=== PATIENT | female | born 1995 | race Caucasian/White ===

== ENCOUNTER 2018-10-03 15:39 | Outpatient (CLI) | payer OTHER ==
[2018-10-03 19:24] VITALS: BP 91/58
--- NOTE | 2018-10-03 20:06 | Ultrasound Report ---
PROCEDURE: US OB LIMITED TECHNIQUE: Ultrasound obstetrical transabdominal limited HISTORY: LISSETT COMPARISONS: FINDINGS: Single live intrauterine gestation present in cephalic position. cardiac activity present with heart rate 130 bpm Amniotic fluid index is 11.2 cm IMPRESSION: Normal amniotic fluid index 11.2 cm. This document is electronically signed by Dejan Hunter MD., October 03 2018 08:04:16 PM ET
--- NOTE | 2018-10-03 20:32 | Ultrasound Report ---
PROCEDURE: US OB BPP WO NON-STRESS TECHNIQUE: Real-time limited sonographic examination was performed for evaluation of for each fetus with image documentation (1 or more fetuses). HISTORY: decreased movement COMPARISONS: None . FINDINGS: biophysical profile: breathing movements: 2. movements: 2. posture and tone: 2. Qualitative amniotic fluid volume: 2. Total score: 8/8. Heart rate: 130 bpm. Amniotic fluid index: 11.2 cm. Largest pocket: 4.74 cm. IMPRESSION: Normal biophysical profile. This document is electronically signed by Aman Jackson MD., October 03 2018 08:30:52 PM ET
== END 2018-10-03 20:12 | disposition home or self-care (01) ==
LOC: TRG 15:39
PROVIDERS: ATTEND Obstetrics & Gynecology
DX: O47.1 False labor at or after 37 completed weeks of gestation (principal); Z3A.40 40 weeks gestation of pregnancy
CPT/HCPCS: 76815; 76819

== ENCOUNTER 2018-10-13 06:57 | Inpatient (IN) | payer MEDICAID, OTHER ==
[2018-10-13] MEDS ORDERED: PITOCin/NS 20 UNIT/1000ML DRIP 20,000 MILLIUNITS/1,000 ML BAG IV ONE (07:18)
--- NOTE | 2018-10-13 07:39 | Procedure Note ---
OB Delivery Note - Delivery Date of Delivery: 10/13/18 (07:15) Surgeon: BROOKE WALLS ([email or web address]) Estimated blood loss: <100cc - Vaginal Delivery presentation: vertex Delivery position: OA Intrapartum events: precipitous labor- <3hr Delivery induction: none Delivery augmentation: rupture of membranes Route of delivery: (07:15) Delivery placenta: spontaneous (07:23) Delivery cord: 3 umbilical vessels Episiotomy: none Delivery laceration: none Anesthesia: none Delivery comments: viable female infant MARCELA position over intact perineum at 07:15. vigorous to mothers abdomen, [id number]. Delayed cord clamping; then cut by female friend in room with my guidance. Cord blood collected per protocol. Spontaneous schutlz delivery of intact placenta. 3VC at 07:23. FF@U-2. No tears or lacerations. and mother left in stable condition in L&D. - Infant A at 1 minute: 9 at 5 minutes: 9 Gender: Female (6lbs 1oz, 2750 grams, 18")
[2018-10-13] MEDS ORDERED: LANSINOH TP PRN (08:00)
[2018-10-13] MEDS ORDERED: TUCKS PAD TP PRN (08:00)
[2018-10-13] MEDS ORDERED: LACTATED RINGERS 1,000 ML IV SCH (08:00)
[2018-10-13] MEDS ORDERED: PITOCin/NS 20 UNIT/1000ML DRIP 20 UNITS/1,000 ML BAG IV SCH (08:00)
[2018-10-13] MEDS ORDERED: TYLENOL PO PRN (08:00)
[2018-10-13] MEDS ORDERED: SODIUM CHLORIDE FLUSH SYRINGE 10 ML IV PRN (08:00)
--- NOTE | 2018-10-13 08:03 | History and Physical Report ---
History of Present Illness Date of examination: 10/13/18 Date of admission: 10/13/18 06:57 Chief complaint: Intense labor pains History of present illness: 17 yo Fe , FADY 10/25/2018 (per pt) presents in active labor. 9cm with urge to push. Pt reports care from [facility]. records not available. Requested. 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 Pt denies) Family/Genetic History: none Social history: no significant social history, single, lives with family, full code. denies: smoking, alcohol abuse, prescription drug abuse, IV drug use - Obstetrical History Expected Date of Delivery: 10/25/18 Actual Gestation: 38 Week(s) 2 Day(s) : 3 Para: 2 Hx # Term Pregnancies: 2 Number of Pregnancies: 0 Spontaneous Abortions: 0 Induced : 0 Number of Living Children: 2 Medications and Allergies Allergies Allergy/AdvReac Type Severity Reaction Status Date / Time No Known Allergies Allergy Verified 10/13/18 07:23 Active Meds: Active Medications Acetaminophen (Tylenol) 650 mg PO Q4H PRN PRN Reason: Pain MILD(1-3)/Fever >100.5/ROBERT Acetaminophen/Hydrocodone Bitart (Bovina 5/325) 2 each PO Q6H PRN PRN Reason: Pain, Moderate (4-6) Lactated Ringer's (Lactated Ringers) 1,000 mls @ 125 mls/hr IV DIRECT HEATHER Oxytocin/Sodium Chloride (Pitocin/Ns 20 Unit/1000ml Drip) 20 units in 1,000 mls @ 125 mls/hr IV DIRECT HEATHER Ibuprofen (Motrin) 600 mg PO Q6H HEATHER Multi-Ingredient Ointment (Lansinoh) 1 applic TP PRN PRN PRN Reason: Sore Nipples Sodium Chloride (Sodium Chloride Flush Syringe 10 Ml) 10 ml IV PRN NR Witch Loli/Glycerin (Tucks Pad) 1 each TP PRN PRN PRN Reason: Hemorrhoid/cleansing/soothing Review of Systems Eyes: normal appearance Cardiovascular: no chest pain, no shortness of breath Respiratory: no shortness of breath Breasts: normal Gastrointestinal: abdominal pain (contractions), no nausea, no vomiting, no diarrhea, no constipation Genitourinary: normal appearance, contractions, no vaginal discharge, no leakage of fluid, no dysuria, no genital sores Integumentary: no rash, no sores, no lesions Endocrine: other (Denies) - Vital Signs Vital signs: Vital Signs Pulse BP 83 125/59 10/13/18 07:38 10/13/18 07:38 Temp Pulse Resp BP Pulse Ox 92 H 110/59 10/13/18 07:39 10/13/18 07:39 - Physical Exam Cardiovascular: Regular rate, Normal S1, Normal S2, No murmurs Lungs: Positive: Clear to auscultation, Normal air movement Abdomen: Positive: normal appearance, soft, normal bowel sounds Genitourinary (Female): Positive: normal external genitalia, normal perenium Vulva: both: normal Vagina: Positive: normal moisture Uterus: Positive: enlarged (gravid) Anus/Rectum: Positive: normal perianal skin Extremities: Positive: normal Deep Tendon Reflex Grade: Normal +2 - Obstetrical FHR: auscultation normal, category 1 Uterine Contraction Monitor Mode: External Cervical Dilatation: 10 Cervical Effacement Percentage: 10 station: +1 Uterine Contraction Pattern: Regular Uterine Tone Measurement Phase: Resting Uterine Contraction Intensity: Strong/Firm Results All other labs normal. Assessment and Plan A: Term IUP 38w2d Active labor GBS unknown category 2 tracing P: Admit to L&D Request records Anticipate
[2018-10-13 08:07] LABS: Hematocrit 38.1 % (30.3-42.9); Hemoglobin 13.2 gm/dl (10.1-14.3); Mean Corpuscular HGB Conc 35 % (30-34); Mean Corpuscular Volume 94 fl (79-97); Platelet Count 227 K/mm3 (140-440); Red Blood Count 4.06 M/mm3 (3.65-5.03); Red Cell Distribution Width 14.4 % (13.2-15.2)
[2018-10-13] MEDS: NORCO 5/325 PO PRN ×2 (08:22→22:17)
[2018-10-13] MEDS: IBUPROFEN PO SCH ×2 (14:30→22:17)
[2018-10-13 19:42] LABS: Hematocrit 33.4 % (30.3-42.9); Hemoglobin 11.7 gm/dl (10.1-14.3)
[2018-10-14] MEDS: IBUPROFEN PO SCH ×2 (03:00→10:46)
--- NOTE | 2018-10-14 11:39 | Progress Note ---
Assessment and Plan A: day 1 S/P spontaneous vaginal delivery. P: Discharge patient home today. discharge instructions and warning signs discussed with patient. Advised patient to avoid intercourse, lifting and heavy housework, driving. Advised patient to continue taking her vitamins and iron at home. Advised patient to follow up at OB clinic in 6 weeks for exam. Patient voiced understanding of all instructions. Subjective - Subjective Date of service: 10/14/18 Principal diagnosis: day 1 S/P spontaneous vaginal delivery Interval history: day 1 S/P spontaneous vaginal delivery. Doing well. Desires discharge today. Patient is voiding without difficulty, ambulating well, tolerating a regular diet without nausea or vomiting. Patient denies headache, chest pain, cough, dizziness, shortness of breath, leg pain, abdominal pain, heavy vaginal bleeding, or any other problems. Patient reports: appetite normal, voiding normally, pain well controlled, flatus, ambulating normally, no dizzy ambulation, no nauseated : doing well Objective - Vital Signs Latest vital signs: Vital Signs Temp Pulse Resp BP BP Pulse Ox 10/14/18 10:46 18 10/14/18 07:33 98.1 F 57 L 18 103/73 10/13/18 23:55 98.7 F 63 18 96/52 97 10/13/18 16:36 98.8 F 53 L 18 95/57 10/13/18 14:30 18 10/13/18 13:16 98.2 F 58 L 18 102/59 Intake and Output 10/13/18 10/14/18 10/14/18 23:59 07:59 15:59 Intake Total 840 480 Output Total 300 Balance 540 480 Intake: Oral 480 480 Intake, Free Water 360 Output: Urine 300 Void 300 Other: Total, Intake Amount 480 360 Total, Output Amount 300 # Voids Void 1 1 - Exam Cardiovascular: Present: Regular rate, Normal S1, Normal S2 Lungs: Present: Clear to auscultation Abdomen: Present: normal appearance, soft. Absent: distention, tenderness, guarding, rigidity Uterus: Present: normal, firm, fundal height below umbilicus. Absent: bogginess, tenderness Extremities: Present: normal. Absent: tenderness, edema
--- NOTE | 2018-10-14 11:44 | Discharge Summary ---
<LUIZ DEAL - Last Filed: 10/14/18 11:42> Providers - Providers Date of Admission: 10/13/18 06:57 Date of discharge: 10/14/18 Attending physician: FAUSTINO DEWEY MD None Primary care physician: FAUSTINO DEWEY MD Hospitalization Reason for admission: active labor Delivery: Episiotomy: none Laceration: none Other procedures: none complications: none Discharge diagnosis: IUP at term delivered [place] baby: female Pertinent studies: Labs Hospital course: Normal hospital course. Condition at discharge: Good Disposition: DC-01 TO HOME OR SELFCARE - Discharge Diagnoses (1) Term delivered Status: Acute Plan - Provider Discharge Summary Activity: routine, no sex for 6 weeks, no heavy lifting 4 weeks, no strenuous exercise Diet: routine Instructions: routine Additional instructions: Continue taking your vitamins at home. Call your doctor immediately for: * Fever > 100.5 * Heavy vaginal bleeding ( >1 pad per hour) * Severe persistent headache * Shortness of breath * Reddened, hot, painful area to leg or breast - Follow up plan Follow up: FAUSTINO DEWEY MD [Primary Care Provider] - 6 Weeks Forms: [facility] Discharge Summary, Discharge Signature Page <RAVEN DOOLEY - Last Filed: 10/15/18 13:10> Providers - Providers Date of Admission: 10/13/18 06:57 Attending physician: FAUSTINO DEWEY MD Primary care physician: FAUSTINO DEWEY MD Hospitalization Hospital course: Laboratory Tests 10/13/18 10/13/18 10/13/18 07:00 07:00 07:00 WBC 11.7 H RBC 4.06 Hgb 13.2 Hct 38.1 MCV 94 MCH 33 H MCHC 35 H RDW 14.4 Plt Count 227 RPR Nonreactive Blood Type O POSITIVE Antibody Screen Negative 10/13/18 19:23 WBC RBC Hgb 11.7 Hct 33.4 MCV MCH MCHC RDW Plt Count RPR Blood Type Antibody Screen Plan - Provider Discharge Summary Additional instructions: [] Smoking cessation referral if applicable(refer to patient education folder for contact #) [] Refer to [facility] Booklet Call your doctor immediately for: * Fever > 100.5 * Heavy vaginal bleeding ( >1 pad per hour) * Severe persistent headache * Shortness of breath * Reddened, hot, painful area to leg or breast * Drainage or odor from incision. * Keep incision clean and dry at all times and follow doctor's instructions regarding bathing/showering
[2018-10-14 12:42] VITALS: BP 93/51
== END 2018-10-14 14:00 | disposition home or self-care (01) | DRG 807 ==
LOC: LD 06:57 → OB 09:47
PROVIDERS: ADMIT Obstetrics & Gynecology; ATTEND Obstetrics & Gynecology
PROC: 10E0XZZ Delivery of Products of Conception, External Approach (ICD-10-PCS; principal; 2018-10-13)
DX: O62.3 Precipitate labor (principal); Z37.0 Single live birth; Z3A.38 38 weeks gestation of pregnancy
CPT/HCPCS: 36415; 85014; 85018; 85027; 86592; 86850; 86900; 86901; G0378; J2590

== ENCOUNTER 2020-06-25 15:50 | Inpatient (IN) | payer OTHER ==
[2020-06-25] MEDS ORDERED: LACTATED RINGERS 1,000 ML ONE (18:34)
[2020-06-25] MEDS ORDERED: LIDOCAINE (2%) 20 MG/1 ML VIAL 20 ML MDV INFILTRATI ONE ×2 (18:36→19:47)
[2020-06-25 18:42] LABS: Hematocrit 37.6 % (30.3-42.9); Hemoglobin 12.7 gm/dl (10.1-14.3); Mean Corpuscular HGB Conc 34 % (30-34); Mean Corpuscular Volume 91 fl (79-97); Platelet Count 272 K/mm3 (140-440); Red Blood Count 4.13 M/mm3 (3.65-5.03); Red Cell Distribution Width 14.3 % (13.2-15.2)
[2020-06-25] MEDS ORDERED: OXYTOCIN DRIP 30,000 MILLIUNITS/500 ML BAG IV ONE (18:46)
[2020-06-25] MEDS ORDERED: LOPERAMIDE 2 MG CAP PO PRN (18:47)
[2020-06-25] MEDS ORDERED: ePHEDrine SULFATE 50 MG/1 ML INJ IV PRN (18:47)
[2020-06-25] MEDS ORDERED: TERBUTALINE 1 MG/1 ML INJ SUB-Q PRN (18:47)
[2020-06-25] MEDS ORDERED: fentaNYL 100 MCG/2 ML INJ IV PRN (18:47)
[2020-06-25] MEDS ORDERED: ACETAMINOPHEN 325 MG TAB PO PRN ×2 (18:47→19:38)
[2020-06-25] MEDS ORDERED: NALOXONE 0.4 MG/1 ML INJ IV PRN (18:47)
[2020-06-25] MEDS ORDERED: PROMETHAZINE 25 MG TAB PO PRN ×2 (18:47→19:38)
[2020-06-25] MEDS ORDERED: OXYTOCIN 10 UNIT/1 ML INJ IM PRN (18:47)
[2020-06-25] MEDS ORDERED: METHYLERGONOVINE MALEATE 0.2 MG/ML VIAL IM PRN (18:47)
[2020-06-25] MEDS ORDERED: miSOPROStol 200 MCG TAB PR PRN ×2 (18:47→19:38)
[2020-06-25] MEDS ORDERED: CARBOPROST TROMETHAMINE 250 MCG/1 ML INJ IM PRN (18:47)
[2020-06-25] MEDS ORDERED: MINERAL OIL 30 ML ORAL LIQD PO PRN (18:47)
--- NOTE | 2020-06-25 18:47 | History and Physical Report ---
History of Present Illness Date of examination: 06/25/20 (Ctxs) Date of admission: 06/25/2020 Chief complaint: Contractions History of present illness: Pt is a 25 y.o. English speaking who presented to triage with c/o ctxs that are 10 minutes apart. Received care at [facility] , Dr. Guero Burkett. She presented with her records, which were reviewed. X3. 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 labs WNL. GBS negative. No medical or surgical history. Denies drug and alcohol use. 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 ) Social history: no significant social history - Obstetrical History Expected Date of Delivery: 06/27/20 Actual Gestation: 39 Week(s) 5 Day(s) : 4 Para: 3 Hx # Term Pregnancies: 3 Number of Pregnancies: 0 Spontaneous Abortions: 0 Induced : 0 Number of Living Children: 3 Medications and Allergies Allergies Allergy/AdvReac Type Severity Reaction Status Date / Time No Known Allergies Allergy Verified 10/13/18 07:23 Home Medications Medication Instructions Recorded Confirmed Last Taken Type No Known Home Medications [No 10/13/18 10/13/18 Unknown History Reported Home Medications] Review of Systems All systems: negative - Vital Signs Vital signs: Vital Signs Pulse Pulse Ox 77 99 06/25/20 16:20 06/25/20 16:20 Temp Pulse Resp BP Pulse Ox 98.3 F 90 16 94/62 97 06/25/20 16:29 06/25/20 18:44 06/25/20 16:29 06/25/20 16:21 06/25/20 18:44 - Physical Exam Breasts: Positive: deferred Cardiovascular: Regular rate, Normal S1, Normal S2 Lungs: Positive: Normal air movement Abdomen: Positive: normal appearance, soft, normal bowel sounds. Negative: distention, tenderness Genitourinary (Female): Positive: normal external genitalia, normal perenium Vulva: both: normal Vagina: Positive: normal moisture. Negative: discharge Cervix: Negative: lesion, discharge Uterus: Positive: normal size, normal contour Anus/Rectum: Positive: normal perianal skin, heme negative. Negative: rectal mass, hemorrhoids Extremities: Deep Tendon Reflex Grade: Normal +2 - Obstetrical FHR: auscultation normal, category 1 Uterine Contraction Monitor Mode: External Cervical Dilatation: 9.5 (BBOW) Cervical Effacement Percentage: 100 station: 0 Uterine Contraction Pattern: Regular Uterine Tone Measurement Phase: Resting Uterine Contraction Intensity: Moderate Results Result Diagrams: 06/25/20 18:20 Abnormal lab results 06/25/20 Range/Units 18:20 WBC 12.8 H (4.5-11.0) K/mm3 All other labs normal. LABS PER RECORD: GBS NEGATIVE O POSITIVE RUBELLA IMMUNE HEP B NEGATIVE HIV NEGATIVE Assessment and Plan - Patient Problems (1) with 39 completed weeks gestation Onset Date: ~06/20/20 Current Visit: Yes Status: Acute Plan to address problem: Admit to labor and delivery. Anticipate . IV fluid bolus. Pt requesting epidural.
[2020-06-25] MEDS ORDERED: OXYTOCIN DRIP 30 UNITS/500 ML BAG IV SCH ×3 (19:00→20:00)
--- NOTE | 2020-06-25 19:32 | Procedure Note ---
OB Delivery Note - Delivery Date of Delivery: 06/25/20 Medical Art Therapist: DOMINGO RUIZ Estimated blood loss: 300cc - Vaginal Delivery presentation: vertex Delivery position: OA Intrapartum events: meconium Delivery induction: none Delivery augmentation: rupture of membranes Delivery monitor: external FHT, external uterine Route of delivery: Delivery placenta: spontaneous Delivery cord: nuchal cord (X1 easily reduced. ) Episiotomy: none Delivery laceration: none Anesthesia: none Delivery comments: of male infant over intact perineum. to mother's chest for skin to skin. Cord cut and clamped after cessation of pulse. Spontaneous delivery of placenta, intact, 3 vessels noted. Perineum and vaginal inspected, no lacerations noted. Fundus firm, minimal bleeding noted. Apgars 8,9, weight 7-4. EBL 300ml. left in stable condition in the care of RN. Sponge counted X 2 with RN and correct X 2. - Infant A at 1 minute: 8 at 5 minutes: 9 Gender: Male
[2020-06-25] MEDS ORDERED: WITCH HAZEL/ GLYCERIN PAD TP PRN (19:38)
[2020-06-25] MEDS ORDERED: BENZOCAINE/MENTHOL 20/0.5% TOP SPRAY 56 GM TP PRN (19:38)
[2020-06-25] MEDS ORDERED: diphenhydrAMINE 25 MG CAP PO PRN (19:38)
[2020-06-25] MEDS ORDERED: MAGNESIUM HYDROXIDE (MOM) ORAL LIQD UDC PO PRN (19:38)
[2020-06-25] MEDS ORDERED: PROMETHAZINE 25 MG RECT SUPP PR PRN (19:38)
[2020-06-25] MEDS ORDERED: LANOLIN/ZINC/DIMETHICONE (LANSINOH) 7 GM TP PRN ×2 (19:38)
[2020-06-25] MEDS ORDERED: ONDANSETRON 4 MG/2 ML INJ IV PRN (19:38)
[2020-06-25] MEDS ORDERED: LACTATED RINGERS 1,000 ML IV SCH (20:00)
[2020-06-25] MEDS: DOCUSATE SODIUM 100 MG CAP PO SCH (22:58)
[2020-06-26 08:12] LABS: Hematocrit 34.4 % (30.3-42.9); Hemoglobin 11.7 gm/dl (10.1-14.3)
[2020-06-26] MEDS: IBUPROFEN 800 MG TAB PO SCH ×2 (08:15→20:51)
[2020-06-26] MEDS: DOCUSATE SODIUM 100 MG CAP PO SCH ×2 (09:27→20:59)
[2020-06-26] MEDS: PRENATAL VIT27-FE FUMARATE-FOLIC ACID VIT TAB PO SCH (09:28)
[2020-06-26] MEDS ORDERED: DIPHtheria,PERTUSSIS(ACELL),TETANUS VACCINE/PF 0.5 ML VIAL IM ONE (12:00)
--- NOTE | 2020-06-26 17:03 | Discharge Summary ---
Providers - Providers Date of Admission: 06/25/20 18:47 Date of discharge: 06/26/20 (pt desires d/c in the AM early if possible) Attending physician: ELIZABETH YU Primary care physician: ELIZABETH YU Hospitalization Reason for admission: active labor, IUP at term Delivery: Episiotomy: none Laceration: none Incision: normal Other procedures: none complications: none Discharge diagnosis: IUP at term delivered baby: male Hospital course: uncomplicated vaginal delivery Pt desires d/c FRIEDA. Wants to be home in the AM. VSS FF below umb Lochia small Perineum intact H&H stable No s/sx of anemia Doing well s/p vag delivery P: d/c when poss Instructions given She will return to her OB of care for PP care in 6 weeks Condition at discharge: Good Disposition: DC-01 TO HOME OR SELFCARE - Discharge Diagnoses (1) Spontaneous vaginal delivery Status: Acute Comment: RTO in 6 weeks for PP care Plan - Provider Discharge Summary Activity: routine, no sex for 6 weeks, no heavy lifting 4 weeks, no strenuous exercise Diet: routine Instructions: routine Additional instructions: [] Smoking cessation referral if applicable(refer to patient education folder for contact #) [] Refer to [facility] Booklet Call your doctor immediately for: * Fever > 100.5 * Heavy vaginal bleeding ( >1 pad per hour) * Severe persistent headache * Shortness of breath * Reddened, hot, painful area to leg or breast * Drainage or odor from incision. * Keep incision clean and dry at all times and follow doctor's instructions regarding bathing/showering - Follow up plan Follow up: ELIZABETH YU MD [Primary Care Provider] - 6 Weeks (Congratulations! Please call your OB clinic to schedule your visit in 6 weeks.)
[2020-06-27] MEDS: IBUPROFEN 800 MG TAB PO SCH ×2 (03:33→11:00)
[2020-06-27] MEDS: DOCUSATE SODIUM 100 MG CAP PO SCH (10:59)
[2020-06-27] MEDS: PRENATAL VIT27-FE FUMARATE-FOLIC ACID VIT TAB PO SCH (10:59)
[2020-06-27 17:08] VITALS: BP 95/55
== END 2020-06-27 15:00 | disposition home or self-care (01) | DRG 807 ==
LOC: LD 15:50 → TRG 15:50 → APU 15:52 → LD 18:47 → TRG 18:47 → OB 22:03
PROVIDERS: ADMIT Obstetrics & Gynecology; ATTEND Obstetrics & Gynecology
PROC: 10E0XZZ Delivery of Products of Conception, External Approach (ICD-10-PCS; principal; 2020-06-25)
PROC: 3E0234Z Introduction of Serum, Toxoid and Vaccine into Muscle, Percutaneous Approach (ICD-10-PCS; 2020-06-26)
DX: O77.0 Labor and delivery complicated by meconium in amniotic fluid (principal); Z37.0 Single live birth; Z3A.39 39 weeks gestation of pregnancy; Z80.0 Family history of malignant neoplasm of digestive organs; Z20.828 Contact with and (suspected) exposure to other viral communicable diseases
CPT/HCPCS: 36415; 85014; 85018; 85027; 86592; 86850; 86900; 86901; 96360; 96374; G0378; J2590; J3010; J7120; U0003